=== PATIENT | female | born 1980 | race Hispanic/Latino ===

== ENCOUNTER 2017-05-19 09:05 | Emergency (ER) | payer BC ==
--- NOTE | 2017-05-19 09:25 | ED PDOC ---
Arrival/HPI - General Chief Complaint: Cough, Cold, Congestion Time Seen by Provider: 05/19/17 09:09 Historian: Patient - History of Present Illness Narrative History of Present Illness (Text): 05/19/17 09:21 A 36 year old female presents to the emergency department complaining of a cough and nasal congestion for 2 weeks. Patient reports mild URI symptoms, shortness of breath and wheezing. She was seen by PMD Dr. Jasson Castillo 10 days ago, who prescribed cough medication and Amoxicillin. Patient states she took the first Amoxicillin last night with no improvement of symptoms. Patient denies any fever, chills, nausea, vomiting, abdominal pain, chest pain or any other complaints. PMD: Dr. Jasson Castillo Time/Duration: Other (2 weeks) Symptom Course: Unchanged Quality: Other Context: Home Associated Symptoms (Text): 05/19/17 09:59 Approximately 2 week history of cough congestion and URI wheezing and shortness of breath. Took amoxicillin last night with no improvement. Appears to be comfortable and in no distress. No respiratory distress. No fever. No chest pain. Past Medical History - Provider Review Nursing Documentation Reviewed: Yes Family/Social History - Physician Review Nursing Documentation Reviewed: Yes Family/Social History: No Known Family HX Smoking Status: Former Smoker Hx Alcohol Use: Yes Frequency of alcohol use: Socially Hx Substance Use: No Allergies/Home Meds Allergies/Adverse Reactions: Allergies No Known Allergies Allergy (Verified 05/19/17 09:30) Home Medications: Home Meds Medication Instructions Recorded Confirmed Alprazolam [Xanax] 0.5 mg PO DAILY PRN 05/19/17 05/19/17 Review of Systems - Physician Review All systems were reviewed & negative as marked: Yes - Review of Systems Constitutional: absent: Fatigue, Fevers, Night Sweats ENT: Sinus Congestion Respiratory: SOB, Cough, Wheezing. absent: Sputum Cardiovascular: absent: Chest Pain Gastrointestinal: absent: Abdominal Pain, Diarrhea, Nausea Neurological: absent: Headache, Dizziness, Focal Weakness Physical Exam Vital Signs Temp Pulse Resp BP Pulse Ox 05/19/17 10:11 98.8 F 112 H 20 140/78 95 05/19/17 09:05 98.9 F 112 H 18 156/91 H 95 Temperature: Afebrile Blood Pressure: Hypertensive Pulse: Regular Respiratory Rate: Normal Appearance: Positive for: Well-Appearing, Non-Toxic, Comfortable, Other (Obese female) Pain Distress: None Mental Status: Positive for: Alert and Oriented X 3 - Systems Exam Head: Present: Atraumatic, Normocephalic Pupils: Present: PERRL Extroacular Muscles: Present: EOMI Conjunctiva: Present: Normal Ears: Present: Normal, NORMAL TM, Normal Canal. No: Erythema, TM Bulging, Fluid , TM Perf Mouth: Present: Moist Mucous Membranes Pharnyx: Present: Normal. No: ERYTHEMA, EXUDATE, TONSILS ENLARGED Nose (Internal): Present: Other (nasal congestion) Neck: Present: Normal Range of Motion Respiratory/Chest: Present: Wheezes (trace wheezing), Decreased Breath Sounds, Rhonchi. No: Respiratory Distress, Accessory Muscle Use, Rales, Retracting, Tachypneic, Tender to Palpation Cardiovascular: Present: Regular Rate and Rhythm, Normal S1, S2. No: Murmurs Abdomen: Present: Normal Bowel Sounds. No: Tenderness, Distention, Peritoneal Signs Back: Present: Normal Inspection Upper Extremity: Present: Normal Inspection. No: Cyanosis, Edema Lower Extremity: Present: Normal Inspection. No: Edema Neurological: Present: GCS=15, CN II-XII Intact, Speech Normal, Motor Func Grossly Intact Skin: Present: Warm, Dry, Normal Color. No: Rashes Psychiatric: Present: Alert, Oriented x 3, Normal Insight, Normal Concentration Medical Decision Making ED Course and Treatment: 05/19/17 09:21 Impression: A 36 year old female with cough and nasal congestion. Patient notes shortness of breath and wheezing. Plan: -- -- Reassess and disposition Progress Notes: 05/19/17 10:01 Patient reports that she did not take the antibiotics because they usually upset her stomach 05/19/17 10:05 Patient's mother arrives and reports that her had the exact same symptoms as her daughter is having now. He was seen in the emergency department and given a shot of antibiotics and a shot for his breathing and felt instantly better. The mother wants these 2 shots for her daughter. She is unclear what they are. 05/19/17 10:45 Patient already has a prescription for amoxicillin. She is requesting a shot of antibiotics. Rocephin has been ordered. Prescription for prednisone, Tessalon and albuterol will be given. Zofran because she sometimes gets nauseous with antibiotics. - RAD Interpretation Radiology Orders: 05/19/17 09:31 CHEST TWO VIEWS (PA/LAT) [RAD] Stat Chest 2 view shows no infiltrate or effusion or cardiomegaly Circuit Court Clerk: ED Physician - Medication Orders Current Medication Orders: Ceftriaxone Sodium (Rocephin 1 Gram Ivpb (D5w)) 1 gm in 100 mls @ 200 mls/hr IVPB STAT TAISHA PRN Reason: Protocol Discontinued Medications Albuterol/Ipratropium (Duoneb 3 Mg/0.5 Mg (3 Ml) Ud) 3 ml IH ONCE STA Stop: 05/19/17 09:32 Last Admin: 05/19/17 09:47 Dose: 3 ml - Scribe Statement The provider has reviewed the documentation as recorded by the Marielaibe Lynnette Camargo Provider Scribe Attestation: All medical record entries made by the Scribe were at my direction and personally dictated by me. I have reviewed the chart and agree that the record accurately reflects my personal performance of the history, physical exam, medical decision making, and the department course for this patient. I have also personally directed, reviewed, and agree with the discharge instructions and disposition. Disposition/Present on Arrival - Present on Arrival Any Indicators Present on Arrival: No History of DVT/PE: No History of Uncontrolled Diabetes: No Urinary Catheter: No History of Decub. Ulcer: No - Disposition Have Diagnosis and Disposition been Completed?: Yes Diagnosis: Asthmatic bronchitis Disposition: HOME/ ROUTINE Disposition Time: 10:48 Patient Plan: Discharge Patient Problems: Current Active Problems Problem Status Onset Asthmatic bronchitis Acute Condition: IMPROVED Discharge Instructions (ExitCare): Acute Bronchitis (ED), Bronchospasm (ED) Additional Instructions: Tylenol or Advil as directed on bottle as needed. Symptomatic treatment. Finish amoxicillin. Follow-up with PMD. Follow-up in the ER as needed. Prescriptions: Prednisone [Deltasone] 20 mg PO DAILY #5 tablet Benzonatate [Tessalon Perles] 100 mg PO Q8 #30 sgl Albuterol HFA [Ventolin HFA 90 mcg/actuation (8 g)] 2 puff IH [id number] #1 puff Ondansetron [Zofran Odt] 4 mg SL Q6 #20 odt Referrals: Shay Castillo MD [Primary Care Provider] - Follow up with primary Forms: [employer] (M[place]ovan)
[2017-05-19 09:31] VITALS: BMI 41.5
[2017-05-19] MEDS ORDERED: Albuterol-Ipratrop 3 mg / 0.5 (3 ml) UD IH STA (09:31)
[2017-05-19] MEDS ORDERED: cefTRIAXone 1 gm 1 GM/100 ML BAG IVPB STA (10:51)
--- NOTE | 2017-05-19 11:39 | RAD ---
HISTORY: cough COMPARISON: No prior. TECHNIQUE: Chest PA and lateral FINDINGS: LUNGS: No active pulmonary disease. PLEURA: No significant pleural effusion identified. No pneumothorax apparent. CARDIOVASCULAR: Normal. OSSEOUS STRUCTURES: No significant abnormalities. VISUALIZED UPPER ABDOMEN: Normal. OTHER FINDINGS: None. IMPRESSION: No active disease.
[2017-05-19 11:44] VITALS: BP 124/71; PULSE 106; RESP 19; TEMP 99
[2017-05-19 12:06] VITALS: O2SAT 97
--- NOTE | 2017-05-19 19:51 | CARD ---
APPROVED REPORT EKG Measurement Heart [id number] <Conclusion> Sinus tachycardia Septal infarct, age undetermined Abnormal ECG
== END 2017-05-19 12:25 | disposition home or self-care (01) ==
LOC: ED 09:05
DX: J45.909 Unspecified asthma, uncomplicated (principal); Z87.891 Personal history of nicotine dependence
CPT/HCPCS: 71020; 93005; 96365; 99284; J0696

== ENCOUNTER 2017-12-03 10:29 | Emergency (ER) | payer BC ==
[2017-12-03 12:16] VITALS: RESP 18; O2SAT 98; BMI 35.5
[2017-12-03] MEDS ORDERED: Sodium Chloride 0.9% 1,000 ML IV STA (12:53)
--- NOTE | 2017-12-03 12:58 | ED PDOC ---
Arrival/HPI - General Historian: Patient <Erin Wallace - Last Filed: 12/03/17 12:58> <Adrian Salomon - Last Filed: 12/03/17 15:12> - General Chief Complaint: Lower Extremity Problem/Injury Time Seen by Provider: 12/03/17 11:57 - History of Present Illness Narrative History of Present Illness (Text): 12/03/17 12:51 37-year-old female presents with 3-4 week history of left ankle and foot pain. Patient states she saw a ethnic studies professor and was diagnosed with stress fractures in the foot. Patient states she wore a walking boot for the past 4 weeks. Patient states that when she took the boot off the ethnic studies professor told her that the fracture was healing but the patient continues to have pain and swelling. Patient followed up with the primary care physician yesterday and was told that she had high blood pressure and was started on a blood pressure medication. Patient denies numbness weakness or tingling in the extremity but is complaining of pain and swelling to the left foot and ankle. Patient denies chest pain or shortness of breath. Denies dizziness or weakness. No other complaints (Erin Wallace) Past Medical History - Provider Review Nursing Documentation Reviewed: Yes - Travel History Have you recently traveled outside [place] w/in the past 3 mons?: No - Infectious Disease Hx of Infectious Diseases: None - Cardiac Hx Cardiac Disorders: Yes Hx Hypertension: Yes - Musculoskeletal/Rheumatological Hx Musculoskeletal Disorders: Yes Hx Herniated Disk: Yes - Psychiatric Hx Substance Use: No - Surgical History Hx Section: Yes (x1) Hx Cholecystectomy: Yes Other/Comment: L ovarian cyst - Anesthesia Hx Anesthesia Reactions: No Hx Malignant Hyperthermia: No <Erin Wallace - Last Filed: 12/03/17 12:58> Family/Social History - Physician Review Nursing Documentation Reviewed: Yes Family/Social History: Unknown Family HX Smoking Status: Former Smoker Hx Alcohol Use: Yes Hx Substance Use: No <Erin Wallace - Last Filed: 12/03/17 12:58> Allergies/Home Meds <Erin Wallace - Last Filed: 12/03/17 12:58> <Adrian Salomon - Last Filed: 12/03/17 15:12> Allergies/Adverse Reactions: Allergies No Known Allergies Allergy (Verified 12/03/17 12:06) Home Medications: Home Meds Medication Instructions Recorded Confirmed Alprazolam [Xanax] 0.5 mg PO DAILY PRN 05/19/17 05/19/17 Review of Systems - Review of Systems Constitutional: absent: Fatigue, Fevers Respiratory: absent: SOB, Cough Cardiovascular: absent: Chest Pain, Palpitations Gastrointestinal: absent: Abdominal Pain, Nausea, Vomiting Musculoskeletal: Arthralgias, Joint Swelling Skin: absent: Rash, Pruritis Neurological: absent: Headache, Dizziness Psychiatric: absent: Anxiety, Depression <Erin Wallace - Last Filed: 12/03/17 12:58> Physical Exam Vital Signs Reviewed: Yes Temperature: Afebrile Blood Pressure: Normal Pulse: Tachycardic Respiratory Rate: Normal Appearance: Positive for: Well-Appearing, Non-Toxic, Comfortable Pain Distress: None Mental Status: Positive for: Alert and Oriented X 3 - Systems Exam Head: Present: Atraumatic Mouth: Present: Moist Mucous Membranes Neck: Present: Normal Range of Motion Respiratory/Chest: Present: Clear to Auscultation, Good Air Exchange. No: Respiratory Distress, Accessory Muscle Use Cardiovascular: Present: Regular Rate and Rhythm, Normal S1, S2, Tachycardic. No: Murmurs Abdomen: No: Tenderness, Rebound, Guarding Back: Present: Normal Inspection Upper Extremity: Present: Normal ROM Lower Extremity: Present: Edema, CALF TENDERNESS, NORMAL PULSES, Normal ROM, Tenderness (left foot/ankle; + ttp over plantar and dorsal aspect of foot with tenderness along the medial malleolus; pt with full rom of ankle and foot. sensation and distal pulses intact; cap refill <2. ), Swelling, Capillary Refill < 2 s. No: Erythema Neurological: Present: GCS=15, Speech Normal Skin: Present: Warm, Dry, Normal Color. No: Rashes Psychiatric: Present: Alert, Oriented x 3 <Erin Wallace - Last Filed: 12/03/17 12:58> Vital Signs Temp Pulse Resp BP Pulse Ox 12/03/17 12:06 98.2 F 119 H 18 127/68 98 Medical Decision Making <Erin Wallace - Last Filed: 12/03/17 12:58> <Adrian Salomon - Last Filed: 12/03/17 15:12> ED Course and Treatment: 12/03/17 12:54 37-year-old female with Left foot and ankle pain and swelling. History of stress fracture in the foot 4 weeks ago completed 4 week treatment with walking boot CBC CMP BNP Venous duplex of the left lower extremity X-rays of the left foot X-rays of the left ankle 12/03/17 12:59 case signed out to dr. salomon pending all results, re-evaluation and disposition. (Erin Wallace) - Lab Interpretations Lab Results: 12/03/17 14:20 12/03/17 14:20 Lab Results 12/03/17 14:20: WBC 8.2, RBC 4.25, Hgb 12.2, Hct 36.0, MCV 84.7, MCH 28.7, MCHC 33.9, RDW 12.5, Plt Count 309, MPV 9.0, Gran % 55.5, Lymph % (Auto) 35.0, [place] % (Auto) 5.4, Eos % (Auto) 3.7, Baso % (Auto) 0.4, Gran # 4.56, Lymph # (Auto) 2.9, [place] # (Auto) 0.4, Eos # (Auto) 0.3, Baso # (Auto) 0.03 12/03/17 14:20: Sodium 142, Potassium 4.7, Chloride 103, Carbon Dioxide 30, Anion Gap 14, BUN 11, Creatinine 0.6 L, Est GFR ( Amer) > 60, Est GFR ( Non-Af Amer) > 60, Random Glucose 108, Calcium 9.0, Total Bilirubin 0.2, AST 36 , ALT 64 H, Alkaline Phosphatase 70, NT-Pro-B Natriuret Pep 78.5, Total Protein 7.1, Albumin 4.2, Globulin 2.9, Albumin/Globulin Ratio 1.4 - RAD Interpretation Radiology Orders: 12/03/17 12:08 ANKLE LEFT 3 VIEWS ROUTINE [RAD] Stat FOOT LEFT 3 VIEWS ROUTINE [RAD] Stat DUPLEX LOWER EXTRM VEIN LEFT [US] Stat - Medication Orders Current Medication Orders: Discontinued Medications Sodium Chloride (Sodium Chloride 0.9%) 1,000 mls @ 999 mls/hr IV .Q1H1M STA Stop: 12/03/17 13:53 Last Admin: 12/03/17 14:22 Dose: 999 mls/hr eMAR Start Stop Document 12/03/17 14:22 OCS (Rec: 12/03/17 14:23 OCS [id number]) Intravenous Solution Start Date 12/03/17 Start Time 14:23 End Date 12/03/17 End time 15:24 Total Infusion Time 61 Disposition/Present on Arrival - Present on Arrival History of DVT/PE: No History of Uncontrolled Diabetes: No Urinary Catheter: No History of Decub. Ulcer: No History Surgical Site Infection Following: None <Erin Wallace - Last Filed: 12/03/17 12:58> - Present on Arrival Any Indicators Present on Arrival: No History of DVT/PE: No History of Uncontrolled Diabetes: No Urinary Catheter: No History of Decub. Ulcer: No History Surgical Site Infection Following: None - Disposition Have Diagnosis and Disposition been Completed?: Yes Disposition Time: 15:10 Patient Plan: Discharge <Adrian Salomon - Last Filed: 12/03/17 15:12> - Disposition Diagnosis: Left ankle pain, Left foot pain, Dependent edema Disposition: HOME/ ROUTINE Condition: GOOD Additional Instructions: Carol - All of your test results are normal..... The next stop would be with orthopedics. Dr. Faye is certified personal chef. Best- Dr. Adrian Salomon Referrals: Shay Castillo MD [Primary Care Provider] - Follow up with primary Rosalee Faye MD [Staff Provider] - Follow up with primary Forms: [employer] (Polish), WORK NOTE, SCHOOL NOTE
[2017-12-03 14:31] LABS: BASO # 0.03 K/mm3 (0.0-2.0); BASO % 0.4 % (0.0-3.0); EOS # 0.3 (0.0-0.7); EOS % 3.7 % (1.5-5.0); GRAN # 4.56 (1.4-6.5); GRAN % 55.5 % (50.0-68.0); HEMOGLOBIN 12.2 g/dL (12.0-16.0); LYMPH # 2.9 (1.2-3.4); MEAN CELL VOLUME 84.7 fl (80.0-105.0); MEAN CORPUSCULAR HEMOGLOBIN 28.7 pg (25.0-35.0); MEAN CORPUSCULAR HGB CONC 33.9 g/dl (31.0-37.0); MONO # 0.4 (0.1-0.6); MONO % 5.4 % (1.0-6.0); RBC 4.25 10^6/uL (3.5-6.1); RED CELL DISTRIBUTION WIDTH 12.5 % (11.5-14.5); WHITE BLOOD COUNT 8.2 10^3/ul (4.5-11.0)
--- NOTE | 2017-12-03 14:31 | RAD ---
PROCEDURE: Left Ankle Radiographs. HISTORY: ankle pain/swelling COMPARISON: None FINDINGS: BONES: Normal. No fracture. JOINTS: Normal. No osteoarthritis. Ankle mortise maintained. Talar dome intact SOFT TISSUES: Normal. OTHER FINDINGS: None. IMPRESSION: Normal left ankle radiographs.
[2017-12-03 14:38] LABS: ALB/GLOB RATIO 1.4 (1.1-1.8); ALBUMIN 4.2 g/dL (3.0-4.8); ALT/SGPT 64 U/L (7-56); AST/SGOT 36 U/L (14-36); BLOOD UREA NITROGEN 11 mg/dL (7-21); GFR AFRICAN-AMERICAN > 60; GFR NON-AFRICAN AMERICAN > 60
--- NOTE | 2017-12-03 14:45 | RAD ---
PROCEDURE: Left Foot Radiographs. HISTORY: foot pain/swelling COMPARISON: None. FINDINGS: BONES: Normal. No fracture. JOINTS: Normal. SOFT TISSUES: Normal. OTHER FINDINGS: None. IMPRESSION: Normal left foot radiographs.
[2017-12-03 14:47] LABS: B-TYPE NATRIURETIC PEPTIDE 78.5 pg/mL (0-450)
[2017-12-03 15:45] VITALS: BP 155/100; PULSE 90; TEMP 98.5
--- NOTE | 2017-12-03 18:13 | US ---
PROCEDURE: Left lower extremity venous US HISTORY: Leg pain and swelling. Evaluate for DVT. PHYSICIAN(S): Tom Morrison MD. TECHNIQUE: Duplex sonography and color-flow Doppler with graded compression were used to evaluate the deep venous system of the left lower extremity. FINDINGS: The visualized deep venous system of the left lower extremity is sonographically normal and compressible. Normal wave forms and augmentation are seen. There is no sonographic evidence for deep venous thrombosis in the visualized segments of the left lower extremity. IMPRESSION: 1. No sonographic evidence for deep venous thrombosis in the visualized segments of the left lower extremity.
== END 2017-12-03 15:44 | disposition home or self-care (01) ==
LOC: ED 10:29
DX: M25.572 Pain in left ankle and joints of left foot (principal); R60.0 Localized edema; I10 Essential (primary) hypertension; Z87.891 Personal history of nicotine dependence
CPT/HCPCS: 73610; 73630; 80053; 83880; 85025; 93971; 96360; 99284; J7030